=== PATIENT | male | born 1990 | race Caucasian/White ===

== ENCOUNTER 2024-04-24 08:04 | Emergency (ER) | payer MEDICAID ==
[~2024-04-24] VITALS: Ht 177.8 cm; Wt 93.2 kg
[2024-04-24] MEDS ORDERED: BICT1TAB PO (08:45)
[2024-04-24] MEDS ORDERED: ARIP15TA68 PO (08:45)
[2024-04-24] MEDS ORDERED: BUPR450T5 PO (08:45)
[2024-04-24 09:19] VITALS: BP 139/81; PULSE 83; RESP 16; TEMP 98.7; O2SAT 97
== END 2024-04-24 09:21 | disposition home or self-care (01) ==
LOC: ER 08:05
DX: B20 Human immunodeficiency virus [HIV] disease (principal); F99 Mental disorder, not otherwise specified; Z76.0 Encounter for issue of repeat prescription; F31.9 Bipolar disorder, unspecified; Z79.899 Other long term (current) drug therapy
CPT/HCPCS: 99281